=== PATIENT | female | born 1980 | race Caucasian/White ===

== ENCOUNTER 2020-10-25 05:45 | Inpatient (IN) | payer OTHER ==
[~2020-10-25] VITALS: Ht 167.6 cm; Wt 88.5 kg
[2020-10-25 06:33] LABS: HEMOGLOBIN 12.7 gm/dl (12.3-15.3); RED BLOOD COUNT 4.28 M/UL (4.00-5.10)
[2020-10-25] MEDS ORDERED: PREVACID15 M1 PO (06:43)
[2020-10-25] MEDS ORDERED: COLACE100 MG PO (06:44)
[2020-10-25] MEDS ORDERED: PHENERGAN 12.12.5 M1 PO (06:44)
[2020-10-25] MEDS ORDERED: PRENATABS FA T1 EACH PO (06:46)
[2020-10-25] MEDS ORDERED: DOCUSATE SODIU250 MG PO (13:01)
[2020-10-25] MEDS ORDERED: FEROSUL325 MG PO (13:01)
[2020-10-25] MEDS ORDERED: IBUPROFEN600 MG PO (13:01)
[2020-10-26 06:18] LABS: HEMOGLOBIN 11.9 gm/dl (12.3-15.3)
== END 2020-10-26 14:57 | disposition home or self-care (01) | DRG 807 ==
LOC: OB 05:45
PROVIDERS: Obstetrics & Gynecology; ADMIT Obstetrics & Gynecology
PROC: 10E0XZZ Delivery of Products of Conception, External Approach (ICD-10-PCS; principal; 2020-10-25)
PROC: 3E033VJ Introduction of Other Hormone into Peripheral Vein, Percutaneous Approach (ICD-10-PCS; 2020-10-25)
PROC: 10907ZC Drainage of Amniotic Fluid, Therapeutic from Products of Conception, Via Natural or Artificial Opening (ICD-10-PCS; 2020-10-25)
PROC: 4A1HXCZ Monitoring of Products of Conception, Cardiac Rate, External Approach (ICD-10-PCS; 2020-10-25)
DX: O99.334 Smoking (tobacco) complicating childbirth (principal); Z37.0 Single live birth; F17.200 Nicotine dependence, unspecified, uncomplicated; Z3A.39 39 weeks gestation of pregnancy; Z20.822 Contact with and (suspected) exposure to COVID-19
CPT/HCPCS: 36415; 81001; 82800; 85014; 85018; 85025; 85461; 86850; 86900; 86901; 90471; 90715; J0595; J2590; J2790; J7120; U0002